=== PATIENT | female | born 1945 | race Hispanic/Latino ===

== ENCOUNTER 2017-08-02 11:29 | Emergency (ER) | payer MEDICARE ==
[~2017-08-02 11:29] MED LIST: ACET1TAB23 PO; ASPI-555 PO; AZIT500T4 PO; BUME2TAB18 PO; CARV3.12 PO; CLOP75TA32 PO; LORA10TA7 PO; METF500T6 PO; MONT10TA24 PO; PANT40TA25 PO; PRED20TA3 PO; SIMV20TA6 PO
== END 2017-08-02 14:37 | disposition home or self-care (01) ==
LOC: EDH 11:29
DX: S06.0X0A Concussion without loss of consciousness, initial encounter (principal); M25.521 Pain in right elbow; H57.12 Ocular pain, left eye; M19.90 Unspecified osteoarthritis, unspecified site; E78.5 Hyperlipidemia, unspecified; I10 Essential (primary) hypertension; I25.2 Old myocardial infarction; Z79.02 Long term (current) use of antithrombotics/antiplatelets; Z72.0 Tobacco use; W18.39XA Other fall on same level, initial encounter; Y93.01 Activity, walking, marching and hiking; Y92.89 Other specified places as the place of occurrence of the external cause; Y99.8 Other external cause status
CPT/HCPCS: 70450; 71046

== ENCOUNTER 2017-12-12 20:24 | Emergency (ER) | payer MEDICARE | END 2017-12-12 23:33 | disposition home or self-care (01) | LOC: EDH 20:24 | DX: S93.491A Sprain of other ligament of right ankle, initial encounter (principal); S80.02XA Contusion of left knee, initial encounter; S80.01XA Contusion of right knee, initial encounter; S70.02XA Contusion of left hip, initial encounter; M19.90 Unspecified osteoarthritis, unspecified site; E78.5 Hyperlipidemia, unspecified; I10 Essential (primary) hypertension; I25.2 Old myocardial infarction; Z72.0 Tobacco use; W18.39XA Other fall on same level, initial encounter; Y93.01 Activity, walking, marching and hiking; Y92.89 Other specified places as the place of occurrence of the external cause; Y99.8 Other external cause status | CPT/HCPCS: 70450; 71045; 73502; 73562; 73610; 73630 ==

== ENCOUNTER 2018-09-14 03:47 | Inpatient (IN) | payer MEDICARE | END 2018-09-16 16:05 | disposition home or self-care (01) | LOC: EDH 03:47 → WSH 09-15 01:21 → EDHIP 06:35 → WSH 13:05 ==

== ENCOUNTER 2021-01-23 16:09 | Inpatient (IN) | payer OTHER, MEDICARE ==
[~2021-01-23] VITALS: Ht 149.9 cm; Wt 74.9 kg
[~2021-01-23 16:09] MED LIST changes: +ALEN70TA80 PO; -ASPI-555 PO; +ASPI-556 PO; -BUME2TAB18 PO; +BUME2TAB5 PO; +LEVO500T2 PO; +MECL-226 PO; +METF-444 PO; -METF500T6 PO; -MONT10TA24 PO; +MONT10TA32 PO; +OXYB10TA30 PO; -PANT40TA25 PO; +PANT40TA54 PO; +SERT-438 PO; +SIMV-43 PO; -SIMV20TA6 PO
[2021-01-23 16:11] VITALS: BP 105/56
[2021-01-23 16:19] VITALS: BP 105/56
[2021-01-23] MEDS ORDERED: ONDANSETRON 4MG INJ IVP ONE (17:15)
[2021-01-23] MEDS ORDERED: HYDROMORPHONE 0.5 MG SYG (0.5MG/0.5ML) IVP ONE (17:15)
[2021-01-23 17:42] VITALS: BP 105/56
[2021-01-23 17:43] LABS: BASOPHILS % (AUTO) 0.3 % (0.0-5.0); EOSINOPHILS % (AUTO) 3.1 % (0.0-8.0); HEMATOCRIT 28.1 % (36-48); LYMPHOCYTES % (AUTO) 38.8 % (21.0-51.0); MEAN CORPUSCULAR HEMOGLOBIN 22.1 pg (27.0-33.0); MEAN CORPUSCULAR HGB CONC 30.6 g/dL (32.0-36.0); MEAN CORPUSCULAR VOLUME 72.2 fL (79-99); MONOCYTES % (AUTO) 9.2 % (3.0-13.0); NEUTROPHILS % (AUTO) 48.4 % (40.0-77.0); PLATELET COUNT (AUTO) 143 K/uL (130-400); RED BLOOD CELL COUNT(AUTO) 3.89 MIL/uL (4.00-5.50); RED CELL DISTRIBUTION WIDTH 16.5 % (11.0-15.5); WHITE BLOOD COUNT (AUTO) 6.1 K/uL (4.8-10.8)
[2021-01-23 17:49] LABS: CREATININE 0.7 mg/dL (0.5-1.5); POTASSIUM 4.8 mmol/L (3.5-5.1)
[2021-01-23 17:54] LABS: ALBUMIN 3.4 g/dL (3.5-5.0); BILIRUBIN,TOTAL 0.2 mg/dL (0.2-1.0); TOTAL PROTEIN, SERUM 7.2 g/dL (6.0-8.3)
[2021-01-23 17:55] LABS: INR 1.09 (0.85-1.15); PROTHROMBIN TIME 11.8 SEC (9.6-11.6)
[2021-01-23 17:57] LABS: PARTIAL THROMBOPLASTIN TIME 26.4 SEC (26.3-35.5)
[2021-01-23] MEDS ORDERED: ACETAMINOPHEN 325 MG TAB PO PRN ×2 (22:30)
[2021-01-23] MEDS ORDERED: ONDANSETRON 4MG INJ IV PRN (22:30)
[2021-01-23 23:08] LABS: ALBUMIN 3.3 g/dL (3.5-5.0); BILIRUBIN,TOTAL 0.3 mg/dL (0.2-1.0); CREATININE 0.6 mg/dL (0.5-1.5); POTASSIUM 4.4 mmol/L (3.5-5.1); TOTAL PROTEIN, SERUM 7.1 g/dL (6.0-8.3)
[2021-01-23 23:11] LABS: % IRON SATURATION 5.4 % (22-44)
[2021-01-23 23:15] VITALS: BP 107/60
[2021-01-23] MEDS: NACL 0.9% 1000ML 1,000 ML IV SCH (23:38)
[2021-01-24] VITALS (9 sets, daily range): BP systolic 110–173; BP diastolic 64–96
[2021-01-24] MEDS ORDERED: SIMV-43 PO (04:57)
[2021-01-24] MEDS ORDERED: LORA10TA7 PO (04:57)
[2021-01-24] MEDS ORDERED: ALBU8.5H8 IH (04:57)
[2021-01-24] MEDS ORDERED: MONT10TA32 PO (04:57)
[2021-01-24] MEDS ORDERED: LOSA1TAB37 PO (04:57)
[2021-01-24] MEDS ORDERED: CLOP75TA32 PO (04:57)
[2021-01-24] MEDS ORDERED: SITA50TA PO (04:57)
[2021-01-24] MEDS ORDERED: ALEN70TA80 PO (04:57)
[2021-01-24] MEDS ORDERED: OXYB10TA30 PO (04:57)
[2021-01-24] MEDS ORDERED: ASPI-1197 PO (04:57)
[2021-01-24] MEDS ORDERED: METF-444 PO (04:57)
[2021-01-24] MEDS: MORPHINE 2 MG SYG IV PRN ×2 (05:25→13:28)
[2021-01-24 05:35] LABS: BASOPHILS % (AUTO) 0.3 % (0.0-5.0); HEMATOCRIT 28.7 % (36-48); MEAN CORPUSCULAR HEMOGLOBIN 21.6 pg (27.0-33.0); MEAN CORPUSCULAR HGB CONC 30.7 g/dL (32.0-36.0); MEAN CORPUSCULAR VOLUME 70.5 fL (79-99); MONOCYTES % (AUTO) 6.1 % (3.0-13.0); NEUTROPHILS % (AUTO) 66.2 % (40.0-77.0); PLATELET COUNT (AUTO) 148 K/uL (130-400); RED BLOOD CELL COUNT(AUTO) 4.07 MIL/uL (4.00-5.50); RED CELL DISTRIBUTION WIDTH 16.2 % (11.0-15.5); WHITE BLOOD COUNT (AUTO) 7.6 K/uL (4.8-10.8)
[2021-01-24 06:01] LABS: ALBUMIN 3.3 g/dL (3.5-5.0); BILIRUBIN,TOTAL 0.4 mg/dL (0.2-1.0); CREATININE 0.6 mg/dL (0.5-1.5); POTASSIUM 4.1 mmol/L (3.5-5.1); TOTAL PROTEIN, SERUM 7.2 g/dL (6.0-8.3)
[2021-01-24] MEDS: INSULIN HUMULIN R 100 UNIT/ML 3ML SQ SCH ×4 (07:30→21:00)
[2021-01-24] MEDS: FAMOTIDINE 20MG VIAL IV SCH ×2 (09:00→20:46)
[2021-01-24] MEDS: CYCLOBENZAPRINE HCL 10 MG TABLET PO SCH ×3 (09:00→20:47)
[2021-01-24] MEDS ORDERED: ENOXAPARIN SODIUM 30 MG/0.3 ML SQ SCH (09:00)
[2021-01-24] MEDS ORDERED: ASPIRIN 81MG CHEW TAB PO SCH (09:00)
[2021-01-24] MEDS: NACL 0.9% 1000ML 1,000 ML IV SCH (18:54)
[2021-01-24] MEDS: SIMVASTATIN 10 MG TABLET PO SCH (20:47)
[2021-01-25 04:03] VITALS: BP 174/80
[2021-01-25 06:17] LABS: BASOPHILS % (AUTO) 0.3 % (0.0-5.0); EOSINOPHILS % (AUTO) 2.5 % (0.0-8.0); LYMPHOCYTES % (AUTO) 40.9 % (21.0-51.0); MEAN CORPUSCULAR HEMOGLOBIN 22.1 pg (27.0-33.0); MEAN CORPUSCULAR VOLUME 71.1 fL (79-99); MONOCYTES % (AUTO) 8.1 % (3.0-13.0); NEUTROPHILS % (AUTO) 47.6 % (40.0-77.0); PLATELET COUNT (AUTO) 137 K/uL (130-400); RED BLOOD CELL COUNT(AUTO) 4.08 MIL/uL (4.00-5.50); RED CELL DISTRIBUTION WIDTH 16.5 % (11.0-15.5); WHITE BLOOD COUNT (AUTO) 6.5 K/uL (4.8-10.8)
[2021-01-25 06:45] LABS: ALBUMIN 3.1 g/dL (3.5-5.0); BILIRUBIN,TOTAL 0.4 mg/dL (0.2-1.0); CREATININE 0.6 mg/dL (0.5-1.5); MAGNESIUM 2.2 mg/dL (1.80-2.40); POTASSIUM 3.9 mmol/L (3.5-5.1); TOTAL PROTEIN, SERUM 7.1 g/dL (6.0-8.3)
[2021-01-25] MEDS: INSULIN HUMULIN R 100 UNIT/ML 3ML SQ SCH ×4 (07:30→21:49)
[2021-01-25 07:31] VITALS: BP 186/77
[2021-01-25] MEDS: HYDROCHLOROTHIAZIDE 25 MG TABLET PO SCH (10:32)
[2021-01-25] MEDS: CYCLOBENZAPRINE HCL 10 MG TABLET PO SCH ×3 (10:33→21:35)
[2021-01-25] MEDS: LOSARTAN 50 MG TABLET PO SCH (10:33)
[2021-01-25] MEDS: FAMOTIDINE 20MG VIAL IV SCH ×2 (10:33→21:34)
[2021-01-25 11:29] VITALS: BP 158/75
[2021-01-25] MEDS: MORPHINE 2 MG SYG IV PRN ×2 (12:28→22:23)
[2021-01-25] MEDS ORDERED: GADOTERATE MEGLUMINE 10 MMOL/20 ML VIAL IV ONE (13:00)
[2021-01-25] MEDS: NACL 0.9% 1000ML 1,000 ML IV SCH (14:30)
[2021-01-25 16:15] VITALS: BP 165/69
[2021-01-25 19:58] VITALS: BP 152/75
[2021-01-25] MEDS: SIMVASTATIN 10 MG TABLET PO SCH (21:37)
[2021-01-26] VITALS: BP 142/59
[2021-01-26 03:57] VITALS: BP 139/64
[2021-01-26] MEDS: INSULIN HUMULIN R 100 UNIT/ML 3ML SQ SCH ×4 (05:47→21:43)
[2021-01-26 06:06] LABS: BASOPHILS % (AUTO) 0.3 % (0.0-5.0); EOSINOPHILS % (AUTO) 4.6 % (0.0-8.0); HEMATOCRIT 30.1 % (36-48); LYMPHOCYTES % (AUTO) 36.6 % (21.0-51.0); MEAN CORPUSCULAR HEMOGLOBIN 21.4 pg (27.0-33.0); MEAN CORPUSCULAR HGB CONC 30.2 g/dL (32.0-36.0); MEAN CORPUSCULAR VOLUME 70.7 fL (79-99); MONOCYTES % (AUTO) 7.2 % (3.0-13.0); PLATELET COUNT (AUTO) 153 K/uL (130-400); RED BLOOD CELL COUNT(AUTO) 4.26 MIL/uL (4.00-5.50); RED CELL DISTRIBUTION WIDTH 16.8 % (11.0-15.5); WHITE BLOOD COUNT (AUTO) 6.1 K/uL (4.8-10.8)
[2021-01-26 06:27] LABS: ALBUMIN 3.2 g/dL (3.5-5.0); BILIRUBIN,TOTAL 0.4 mg/dL (0.2-1.0); CREATININE 0.6 mg/dL (0.5-1.5); TOTAL PROTEIN, SERUM 7.4 g/dL (6.0-8.3)
[2021-01-26 06:32] LABS: B-TYPE NATRIURETIC PEPTIDE 53 pg/mL (0-100)
[2021-01-26 07:27] VITALS: BP 121/52
[2021-01-26] MEDS: CYCLOBENZAPRINE HCL 10 MG TABLET PO SCH ×3 (08:25→20:43)
[2021-01-26] MEDS: FAMOTIDINE 20MG VIAL IV SCH ×2 (08:25→20:44)
[2021-01-26] MEDS: LOSARTAN 50 MG TABLET PO SCH (08:25)
[2021-01-26] MEDS: MORPHINE 2 MG SYG IV PRN ×2 (08:27→20:55)
[2021-01-26] MEDS: HYDROCHLOROTHIAZIDE 25 MG TABLET PO SCH (08:27)
[2021-01-26] MEDS: NACL 0.9% 1000ML 1,000 ML IV SCH (10:30)
[2021-01-26 11:36] VITALS: BP 147/66
[2021-01-26 15:48] VITALS: BP 151/68
[2021-01-26] MEDS ORDERED: FERROUS SULFATE 325 MG TABLET.DR PO SCH (17:45)
[2021-01-26] MEDS ORDERED: CLOPIDOGREL 75MG TAB PO SCH (17:45)
[2021-01-26] MEDS ORDERED: ASPIRIN 81 MG EC TAB PO ONE (17:45)
[2021-01-26] MEDS: ASPIRIN 81 MG EC TAB PO SCH (18:25)
[2021-01-26] MEDS: CLOPIDOGREL 75MG TAB PO SCH (18:25)
[2021-01-26] MEDS: FERROUS SULFATE 325 MG TABLET.DR PO SCH (18:26)
[2021-01-26 19:59] VITALS: BP 137/59
[2021-01-26] MEDS: SIMVASTATIN 10 MG TABLET PO SCH (20:44)
[2021-01-27 00:08] VITALS: BP 155/69
[2021-01-27 04:00] VITALS: BP 133/69
[2021-01-27] MEDS: INSULIN HUMULIN R 100 UNIT/ML 3ML SQ SCH ×4 (05:47→21:00)
[2021-01-27] MEDS: NACL 0.9% 1000ML 1,000 ML IV SCH (06:30)
[2021-01-27 06:36] LABS: BASOPHILS % (AUTO) 0.3 % (0.0-5.0); HEMATOCRIT 30.7 % (36-48); LYMPHOCYTES % (AUTO) 40.5 % (21.0-51.0); MEAN CORPUSCULAR HEMOGLOBIN 21.1 pg (27.0-33.0); MEAN CORPUSCULAR VOLUME 70.4 fL (79-99); MONOCYTES % (AUTO) 8.2 % (3.0-13.0); NEUTROPHILS % (AUTO) 46.5 % (40.0-77.0); PLATELET COUNT (AUTO) 154 K/uL (130-400); RED BLOOD CELL COUNT(AUTO) 4.36 MIL/uL (4.00-5.50); RED CELL DISTRIBUTION WIDTH 16.8 % (11.0-15.5); WHITE BLOOD COUNT (AUTO) 5.7 K/uL (4.8-10.8)
[2021-01-27 06:52] LABS: CREATININE 0.6 mg/dL (0.5-1.5); POTASSIUM 4.4 mmol/L (3.5-5.1)
[2021-01-27 06:53] LABS: % IRON SATURATION 77.1 % (22-44)
[2021-01-27 07:29] VITALS: BP 128/63
[2021-01-27] MEDS: CYCLOBENZAPRINE HCL 10 MG TABLET PO SCH ×3 (09:49→20:00)
[2021-01-27] MEDS: FERROUS SULFATE 325 MG TABLET.DR PO SCH (09:49)
[2021-01-27] MEDS: ASPIRIN 81 MG EC TAB PO SCH (09:49)
[2021-01-27] MEDS: HYDROCHLOROTHIAZIDE 25 MG TABLET PO SCH (09:50)
[2021-01-27] MEDS: CLOPIDOGREL 75MG TAB PO SCH (09:50)
[2021-01-27] MEDS: FAMOTIDINE 20MG VIAL IV SCH ×2 (09:51→20:00)
[2021-01-27] MEDS: LOSARTAN 50 MG TABLET PO SCH (09:51)
[2021-01-27] MEDS: MORPHINE 2 MG SYG IV PRN ×2 (10:10→20:07)
[2021-01-27 11:14] VITALS: BP 125/58
[2021-01-27 16:09] VITALS: BP 128/58
[2021-01-27] MEDS: SIMVASTATIN 10 MG TABLET PO SCH (20:00)
[2021-01-27 20:10] VITALS: BP 134/63
[2021-01-28] VITALS: BP 126/56
[2021-01-28] MEDS: NACL 0.9% 1000ML 1,000 ML IV SCH (02:30)
[2021-01-28] MEDS: INSULIN HUMULIN R 100 UNIT/ML 3ML SQ SCH ×2 (07:15→11:24)
[2021-01-28 08:10] VITALS: BP 136/88
[2021-01-28] MEDS: CYCLOBENZAPRINE HCL 10 MG TABLET PO SCH ×2 (08:35→13:40)
[2021-01-28] MEDS: HYDROCHLOROTHIAZIDE 25 MG TABLET PO SCH (08:35)
[2021-01-28] MEDS: ASPIRIN 81 MG EC TAB PO SCH (08:35)
[2021-01-28] MEDS: FERROUS SULFATE 325 MG TABLET.DR PO SCH (08:35)
[2021-01-28] MEDS: CLOPIDOGREL 75MG TAB PO SCH (08:36)
[2021-01-28] MEDS: FAMOTIDINE 20MG VIAL IV SCH (08:36)
[2021-01-28] MEDS: LOSARTAN 50 MG TABLET PO SCH (08:36)
[2021-01-28 11:11] VITALS: BP 119/51
== END 2021-01-28 16:30 | DRG 563 ==
LOC: EDH 16:09 → EDHIP 23:11 → 3AH 01-24 08:26
PROVIDERS: ADMIT Internal Medicine; ATTEND Internal Medicine
DX: M23.91 Unspecified internal derangement of right knee (principal); S80.02XA Contusion of left knee, initial encounter; D64.9 Anemia, unspecified; I25.2 Old myocardial infarction; I25.10 Atherosclerotic heart disease of native coronary artery without angina pectoris; E78.00 Pure hypercholesterolemia, unspecified; E78.5 Hyperlipidemia, unspecified; I10 Essential (primary) hypertension; J45.909 Unspecified asthma, uncomplicated; M19.90 Unspecified osteoarthritis, unspecified site; W01.0XXA Fall on same level from slipping, tripping and stumbling without subsequent striking against object, initial encounter; E11.9 Type 2 diabetes mellitus without complications; M25.462 Effusion, left knee; Y93.01 Activity, walking, marching and hiking; Y92.89 Other specified places as the place of occurrence of the external cause; Y99.8 Other external cause status; Z86.12 Personal history of poliomyelitis; Z87.891 Personal history of nicotine dependence; Z95.5 Presence of coronary angioplasty implant and graft; Z86.16 Personal history of COVID-19; Z91.018 Allergy to other foods; Z82.3 Family history of stroke; Z90.49 Acquired absence of other specified parts of digestive tract
CPT/HCPCS: 36415; 71045; 73501; 73562; 73700; 73723; 80048; 80053; 80061; 82948; 83540; 83550; 83735; 83880; 84484; 85025; 85610; 85651; 85730; 97039; G0378; J1170; J1815; J2405; J3490

== ENCOUNTER → 2025-03-07 | Emergency (ER) | payer OTHER, MEDICAID ==
[~2025-03-07] VITALS: Ht 149.9 cm; Wt 83.5 kg
[~2025-03-07] MED LIST changes: -ACET1TAB23 PO; +ASCO500T19 PO; -AZIT500T4 PO; -BUME2TAB5 PO; +CEFD300C3 PO; +CYAN-37 PO; +FERR-72 PO; +FOLI0.8T3 PO; -LEVO500T2 PO; +LOSA1TAB37 PO; -MECL-226 PO; -METF-444 PO; +MONT-39 PO; -MONT10TA32 PO; +NITR0.4T50 SL; -PANT40TA54 PO; +PANT40TA55 PO; +PIOG30TA70 PO; -PRED20TA3 PO; -SERT-438 PO
[2025-03-07 08:50] LABS: IMMATURE GRANULOCYTE ABSOLUTE 0.02 K/uL (0-1); NUCLEATED RED BLOOD CELLS 0.0 % (0.0-0.19); PLATELET COUNT (AUTO) 112 K/uL (130-400); RED BLOOD CELL COUNT(AUTO) 3.85 MIL/uL (4.00-5.50); RED CELL DISTRIBUTION WIDTH 13.9 % (11.0-15.5); WHITE BLOOD COUNT (AUTO) 4.9 K/uL (4.8-10.8)
--- NOTE | 2025-03-07 08:50 | NUR ---
PROVIDER AT BEDSIDE AT THIS TIME.
[2025-03-07 08:57] LABS: CREATININE 0.6 mg/dL (0.5-1.0); GLOMERULAR FILTR. RATE CALC 92.0 mL/min (>90); GLUCOSE,RANDOM 99.0 mg/dL (70-105); SODIUM SERUM 133.0 mmol/L (136-145); UREA NITROGEN, BLOOD 13.0 mg/dL (7-18)
[2025-03-07 09:01] LABS: ASPARTATE AMINOTRANSFERASE 21.0 U/L (10-37); TOTAL PROTEIN, SERUM 6.7 g/dL (6.0-8.3)
[2025-03-07 10:02] LABS: APPEARANCE,URINE CLEAR (CLEAR); GLUCOSE, URINE (UA) NEGATIVE (NEGATIVE); LEUKOCYTE ESTERASE ,URINE NEGATIVE Leu/uL (NEGATIVE); NITRATE,URINE NEGATIVE (NEGATIVE); OCCULT BLOOD,URINE NEGATIVE (NEGATIVE)
[2025-03-07 10:08] LABS: ADD UA MICROSCOPIC NO
[2025-03-07] MEDS: 0.9%NACL 1000ML 1,000 ML IV ONE (10:18)
--- NOTE | 2025-03-07 10:26 | ERN ---
General Chief Complaint: Abdominal Pain Stated Complaint: ABD PAIN Time Seen by MD: 08:09 Source: patient History of Present Illness Initial Comments Patient is a 79-year-old female coming in complaining of abdominal discomfort. Patient states he is a has a chronic history of this. No fever no chills. She states that the symptoms began earlier in the morning. Allergies: Coded Allergies: No Known Drug Allergies (Verified Allergy, Unknown, 03/13/16) broccoli (Unverified Allergy, Unknown, 03/13/16) THROAT CLOSES carrot (Unverified Adverse Reaction, Severe, SWOLLEN TONGUE, 08/17/23) Home Meds Active Scripts Cyanocobalamin (Vitamin B-12) (B-12) 1,000 Mcg Tablet, 1000 MCG PO DAILY for 30 Days, #30 TAB 1 Refill Prov:CRISTIAN BARTLETT MD 08/20/23 Folic Acid (Folic Acid) 0.8 Mg Tablet, 0.8 MG PO DAILY for 30 Days, #30 TAB 1 Refill Prov:CRISTIAN BARTLETT MD 08/20/23 Nitroglycerin (Nitroglycerin) 0.4 Mg Tab.subl, 0.4 MG SL [id number] PRN for CHEST PAIN for 30 Days, #30 TAB.SL 1 Refill Prov:CRISTIAN BARTLETT MD 08/20/23 Cefdinir (Cefdinir) 300 Mg Capsule, 300 MG PO BID for 5 Days, #10 CAP 0 Refills Prov:CRISTIAN BARTLETT MD 08/20/23 Reported Medications Ferrous Sulfate (Ferrous Sulfate) 325 Mg (65 Mg Iron) Tablet, 325 MG PO TID, TAB 08/16/23 Ascorbic Acid/Ascorbate Sodium (Vitamin C 500 mg Tablet Chew) 500 Mg Tab.chew, 500 MG PO BID, TAB.CHEW 08/16/23 Pioglitazone HCl (Pioglitazone HCl) 30 Mg Tablet, 30 MG PO DAILY, TAB 08/16/23 Losartan/Hydrochlorothiazide (Losartan-Hctz 50-12.5 mg Tab) 1 Each Tablet, 1 EACH PO DAILY, TAB 01/24/21 Clopidogrel Bisulfate (Clopidogrel) 75 Mg Tablet, 75 MG PO DAILY, TAB 01/24/21 Loratadine (Loratadine) 10 Mg Tablet, 10 MG PO DAILY, TAB 01/24/21 Montelukast Sodium (Montelukast Sodium) 10 Mg Tablet, 10 MG PO HS, TAB 01/24/21 Simvastatin (Simvastatin) 20 Mg Tablet, 20 MG PO HS, TAB 01/24/21 Oxybutynin Chloride (Oxybutynin Chloride ER) 10 Mg Tab.er.24, 10 MG PO DAILY 01/24/21 Alendronate Sodium (Alendronate Sodium) 70 Mg Tablet, 70 MG PO QWEEK, TAB 01/24/21 Aspirin (Aspir 81) 81 Mg Tablet.dr, 81 MG PO DAILY, TAB 03/13/16 Carvedilol (Carvedilol) 3.125 Mg Tablet, 6.25 MG PO BID, TAB 03/13/16 Past Medical History Past Medical History: CAD, High Cholesterol, Hypertension Medical History Other: POLIO TO RIGHT LEG Past Surgical History: Other Surgical History Other: CARDIAC STENTS Family History Family History: Negative Social History Social History: Negative ROS Dictation CONSTITUTIONAL: No chills, no fever, no weakness, no diaphoresis, no malaise. HEAD/FACE: No signs of trauma. EENT: No eye pain, no blurred vision, no tearing, no double vision, no ear pain, no ear discharge, no nose pain, no nasal congestion, no throat pain, no throat swelling, no mouth pain. RESPIRATORY: No cough, no orthopnea, no SOB, no stridor, no wheezing. CARDIOVASCULAR: No chest pain, no edema, no palpitations, no syncope. GASTROINTESTINAL/ABDOMINAL: abdominal pain, no constipation, no diarrhea, no nausea, no vomiting. GENITOURINARY: No abnormal discharge, no dysuria, no frequent urination, no hematuria. No complaints of pain in the genitals. MUSCULOSKELETAL: No back pain, no gout, no joint pain, no joint swelling, no muscle pain, no muscle stiffness, no neck pain. INTEGUMENTARY: No change in color, no change in hair/nails, no dryness, no lesion, no lumps, no rash. NEUROLOGICAL/PSYCH: No anxiety, not depressed, no emotional problem, no headache, no numbness, no pre-existing deficit, no history of seizures, no tremors, no weakness. HEMATOLOGIC/LYMPHATIC: Not anemic, no history of blood clots, no apparent bleeding, no bruising, glands not swollen. All Systems Negative, Except as Noted. Physical Exam Physical Exam Dictation VITAL SIGNS: Reviewed. GENERAL APPEARANCE: Alert, oriented x3, no acute distress, obese. HEAD AND FACE: Non-traumatic. EYES: PERRL, pink conjunctivas, eyelid no trauma, anterior chamber clear. EARS: Pinnas intact and no signs of trauma or erythema. Ear canals clear and no discharge. TMs no erythema. NOSE: No discharge, no bleeding. OROPHARYNX: Mouth normal, teeth no caries, tongue pink. Pharynx clear, no erythema. Tonsils no exudates, no abscesses noted. Mucous membrane moist. NECK: Supple, non-tender, no thyromegaly, no masses, no JVD, no bruits. BREAST: Deferred. CHEST: No tenderness, no crepitus, no paradoxical movement, no retractions. LUNGS: Clear, well-ventilated, symmetric, no rales, no wheezing, no rhonchi, no stridor, good breath sounds bilaterally. HEART: Regular rate, regular rhythm, no murmur, no gallops. VASCULAR: No peripheral edema. ABDOMEN: Soft, positive bowel sounds, nondistended, no guarding, epigastric tender, no rebound, no masses no hepatomegaly, no splenomegaly, no Hendricks's sign, no hernias. RECTAL: Deferred. GENITAL: Deferred. NEUROLOGICAL: Normal speech, gross motor function intact, gross sensory functi on intact. MUSCULOSKELETAL: Neck nontender, full range of motion, back nontender, full range of motion. EXTREMITIES: Nontender, full range of motion. SKIN: Color pink, dry, no turgor, no rash, no lacerations, no abrasions, no contusions. LYMPHATICS: Deferred. Results Laboratory and Microbiology Lab and Micro Result Laboratory Tests Test 03/07/25 08:24 03/07/25 09:38 White Blood Count 4.9 K/uL (4.8-10.8) Red Blood Count 3.85 MIL/uL (4.00-5.50) L Hemoglobin 11.3 g/dL (12.0-16.0) L Hematocrit 33.9 % (36-48) L Mean Corpuscular Volume 88.1 fL (79-99) Mean Corpuscular Hemoglobin 29.4 pg (27.0-33.0) Mean Corpuscular Hemoglobin Concent 33.3 g/dL (32.0-36.0) Red Cell Distribution Width 13.9 % (11.0-15.5) Platelet Count 112 K/uL (130-400) L Mean Platelet Volume 11.1 fL (7.5-10.5) H Immature Granulocyte % (Auto) 0.4 % (0-1) Neutrophils (%) (Auto) 58.5 % (40.0-77.0) Lymphocytes (%) (Auto) 30.5 % (21.0-51.0) Monocytes (%) (Auto) 6.7 % (3.0-13.0) Eosinophils (%) (Auto) 3.5 % (0.0-8.0) Basophils (%) (Auto) 0.4 % (0.0-5.0) Neutrophils # (Auto) 2.9 K/uL (1.8-7.7) Lymphocytes # (Auto) 1.5 K/uL (1.0-4.8) Monocytes # (Auto) 0.3 K/uL (0.1-1.0) Eosinophils # (Auto) 0.17 K/uL (0.00-0.70) Basophils # (Auto) 0.02 K/uL (0.00-0.20) Absolute Immature Granulocyte (auto 0.02 K/uL (0-1) Nucleated Red Blood Cells 0.0 % (0.0-0.19) Sodium Level 133 mmol/L (136-145) L Potassium Level 4.5 mmol/L (3.5-5.1) Chloride Level 99 mmol/L (101-111) L Carbon Dioxide Level 29 mmol/L (21-32) Blood Urea Nitrogen 13 mg/dL (7-18) Creatinine 0.6 mg/dL (0.5-1.0) Glomerular Filtration Rate Calc 92 mL/min (>90) Random Glucose 99 mg/dL (70-105) Total Calcium 9.0 mg/dL (8.5-10.1) Total Bilirubin 0.4 mg/dL (0.2-1.0) Aspartate Amino Transf (AST/SGOT) 21 U/L (10-37) Alanine Aminotransferase (ALT/SGPT) 25 U/L (12-78) Alkaline Phosphatase 82 U/L (50-136) Troponin I High Sensitivity 7 ng/L (4-50) Total Protein 6.7 g/dL (6.0-8.3) Albumin 3.2 g/dL (3.5-5.0) L Lipase 19 U/L (16-77) Urine Color COLORLESS (YELLOW) Urine Appearance CLEAR (CLEAR) Urine pH 7.0 (5.0-8.0) Urine Specific [place] 1.006 (1.001-1.031) Urine Protein NEGATIVE mg/dL (NEGATIVE) Urine Glucose (UA) NEGATIVE mg/dL (NEGATIVE) Urine Ketones NEGATIVE mg/dL (NEGATIVE) Urine Occult Blood NEGATIVE (NEGATIVE) Urine Nitrate NEGATIVE (NEGATIVE) Urine Bilirubin NEGATIVE mg/dL (NEGATIVE) Urine Urobilinogen 0.2 mg/dL (0.2-1.0) Urine Leukocyte Esterase NEGATIVE Riccardo/uL Labs Reviewed?: Yes EKG/XRAY/US/CT/MRI EKG Comment 12/2024 time 10:29 a.m. Ventricular rate 75 Sinus rhythm [place] [address] wave elevation or depression MDM MDM: Differential diagnosis: Gastritis, GERD, NSTEMI, ACS, pancreatitis Rationale: Tests considered and ordered secondary to shared decision making include: Previous outside records reviewed: Old ER visits. Risk of complication and/or morbidity or mortality of patient management: None Medications-Per medication reconciliation Need for hospitalization: Patient does not meet criteria for hospitalization. Need for emergency major/minor surgery: No Patient is a 79-year-old female coming in complaining of epigastric pain. Laboratory workup within normal limits. Patient received a GI cocktail Protonix states her symptoms have subsided. Patient will be discharged in stable condition with a diagnosis of viral gastroenteritis. ED Course Orders Procedure Category Date Status Time Cbc With Differential LAB 03/07/25 Complete 08:13 Comprehensive LAB 03/07/25 Complete Metabolic Panel 08:13 Troponin I High LAB 03/07/25 Complete Sensitivity 08:13 Urinalysis Profile LAB 03/07/25 Complete 08:13 0.9%Nacl 1000ml (Ns PHA 03/07/25 Complete 1000ml) 08:30 Pantoprazole 40mg Inj PHA 03/07/25 Complete (Protonix 40mg Inj 08:30 Lipase LAB 03/07/25 Complete 08:13 12 Lead Ekg Tracing- EKG 03/07/25 Logged Technical 10:27 Current Medications Medications (Trade) Dose Ordered Sig/Meka Route PRN Reason Start Time Stop Time Status Last Admin Dose Admin Pantoprazole Sodium (PROTonix 40MG INJ) 40 mg ONCE ONCE IVP 03/07/25 08:30 03/07/25 08:31 DC 03/07/25 10:18 Sodium Chloride 1,000 ml @ 0 mls/hr ONCE ONCE IV 03/07/25 08:30 03/07/25 08:31 DC 03/07/25 10:18 Vital Signs Date Time Temp Pulse Resp B/P (MAP) Pulse Ox O2 Delivery O2 Flow Rate FiO2 03/07/25 08:38 83 19 122/61 99 Room Air* 0 21 03/07/25 08:07 98.4 74 16 125/85 97 Room Air 0 DX & DISP Disposition: Discharge Departure Impression: Primary Impression: Viral gastroenteritis Additional Impression: Gastritis Condition: Stable Scripts Pantoprazole Sodium (Protonix) 40 Mg Ectab 1 TAB PO DAILY for 30 Days, #30 TAB 0 Refills Prov: DIONNE HUTSON MD 03/07/25 Additional Instructions: You have been reviewed in the emergency department at [facility] after presenting with chest pain. After considering your history, your risk factors, your EKG and your blood test troponins, have been found to be at very low risk less than (1 in 100) of having a major adverse cardiac event (like heart attack) in the near future. In the " low risk" group, the risks of doing further tests and treatment as the inpatient outweighs the benefits. In many patients in the low risk group for the test of any sort or unnecessary, however he should discuss this further with his general practitioner who will understand the medical and personal backgrounds better. Because we have never declared you" no risk" we would suggest. 1 returning for medical review if you have further episodes of chest pain/arm pain or other concerning symptoms like dizziness, collapse, palpitations or shortness of breath. 2. Following up with your local doctor who will consider the need for further testing and will also ensure that any modifiable risk factors you may have for heart disease are optimally managed. Patient will be discharged in stable condition at the moment discharge patient states , no chest pain Referrals: ANGUS BARTH (PCP) Time of Disposition: 10:35 DIONNE HUTSON MD Mar 07, 2025 10:26
--- NOTE | 2025-03-07 10:34 | EKG ---
[facility] Test Date: 2025-03-07 Test Time: 10:29:59 Pat Name: IKE ROBERTS Department: [facility] Room: Gender: F Hand Box Folder: [id number] : [id number] Requested By: DIONNE HUTSON Order Number: [id number] Reading MD: Heriberto Sharma Measurements Intervals [place] Rate: 75 P: 67 CO: 161 QRS: -19 QRSD: 89 T: 44 QT: 390 QTc: 437 Interpretive Statements Sinus rhythm Probable left atrial enlargement Compared to ECG 08/15/2023 19:00:18 No significant changes Electronically Signed On 03-10-2025 19:46:54 CDT by Heriberto Sharma Please click the below link to view image of tracing.
[2025-03-07] MEDS: MAG/ALUM/SIMETH 30 ML UDCUP PO ONE (10:46)
[2025-03-07] MEDS: LIDOCAINE HCL 2% VISCOUS 15 ML UDCUP PO ONE (10:46)
[2025-03-07 11:15] VITALS: BP 125/66; PULSE 80; RESP 20; TEMP 98.3; O2SAT 98
== END ==
LOC: EDH 08:05
DX: A08.4 Viral intestinal infection, unspecified (principal); K29.70 Gastritis, unspecified, without bleeding; I25.10 Atherosclerotic heart disease of native coronary artery without angina pectoris; E78.00 Pure hypercholesterolemia, unspecified; I10 Essential (primary) hypertension; Z95.5 Presence of coronary angioplasty implant and graft; Z79.84 Long term (current) use of oral hypoglycemic drugs; Z79.899 Other long term (current) drug therapy; Z79.82 Long term (current) use of aspirin; Z79.02 Long term (current) use of antithrombotics/antiplatelets
CPT/HCPCS: 99284; 96374; 96361; 84484; 80053; 83690; 85025; 81003; 36415; 93005; J7030; J2470

== ENCOUNTER 2025-03-22 16:07 | Emergency (ER) | payer OTHER, MEDICAID ==
[~2025-03-22] VITALS: Ht 149.9 cm; Wt 83.5 kg
--- NOTE | 2025-03-22 16:15 | ERN ---
ED Note History of Present Illness Stated Complaint: EPIGASTRIC PAIN Chief Complaint: Abdominal Pain Time Seen by MD: 16:09 Dictation: PATIENT IS A 79-YEAR-OLD FEMALE COMING IN VIA EMS WITH COMPLAINTS OF EPIGASTRIC PAIN THAT SHE DESCRIBED BURNING ONSET 1 HOUR PRIOR TO ARRIVAL. NO FEVER NO CHILLS NO NAUSEA VOMITING. NO CHEST PAIN. SHE STATES SHE DOES HAVE A HISTORY OF CARDIAC DISEASE TOOK TWO NITROGLYCERIN WITHOUT ANY RELIEF. HE IS TENDER TO THE EPIGASTRIC AREA STATES SHE DOES HAVE A HISTORY OF GASTRITIS. Allergies: Coded Allergies: No Known Drug Allergies (Verified Allergy, Unknown, 03/13/16) broccoli (Unverified Allergy, Unknown, 03/13/16) THROAT CLOSES carrot (Unverified Adverse Reaction, Severe, SWOLLEN TONGUE, 08/17/23) Home Meds Active Scripts Pantoprazole Sodium (Protonix) 40 Mg Ectab, 1 TAB PO DAILY for 30 Days, #30 TAB 0 Refills Prov:DIONNE HUTSON MD 03/07/25 Cyanocobalamin (Vitamin B-12) (B-12) 1,000 Mcg Tablet, 1000 MCG PO DAILY for 30 Days, #30 TAB 1 Refill Prov:CRISTIAN BARTLETT MD 08/20/23 Folic Acid (Folic Acid) 0.8 Mg Tablet, 0.8 MG PO DAILY for 30 Days, #30 TAB 1 Refill Prov:CRISTIAN BARTLETT MD 08/20/23 Nitroglycerin (Nitroglycerin) 0.4 Mg Tab.subl, 0.4 MG SL [id number] PRN for CHEST PAIN for 30 Days, #30 TAB.SL 1 Refill Prov:CRISTIAN BARTLETT MD 08/20/23 Cefdinir (Cefdinir) 300 Mg Capsule, 300 MG PO BID for 5 Days, #10 CAP 0 Refills Prov:CRISTIAN BARTLETT MD 08/20/23 Reported Medications Ferrous Sulfate (Ferrous Sulfate) 325 Mg (65 Mg Iron) Tablet, 325 MG PO TID, TAB 08/16/23 Ascorbic Acid/Ascorbate Sodium (Vitamin C 500 mg Tablet Chew) 500 Mg Tab.chew, 500 MG PO BID, TAB.CHEW 08/16/23 Pioglitazone HCl (Pioglitazone HCl) 30 Mg Tablet, 30 MG PO DAILY, TAB 08/16/23 Losartan/Hydrochlorothiazide (Losartan-Hctz 50-12.5 mg Tab) 1 Each Tablet, 1 EACH PO DAILY, TAB 01/24/21 Clopidogrel Bisulfate (Clopidogrel) 75 Mg Tablet, 75 MG PO DAILY, TAB 01/24/21 Loratadine (Loratadine) 10 Mg Tablet, 10 MG PO DAILY, TAB 01/24/21 Montelukast Sodium (Montelukast Sodium) 10 Mg Tablet, 10 MG PO HS, TAB 01/24/21 Simvastatin (Simvastatin) 20 Mg Tablet, 20 MG PO HS, TAB 01/24/21 Oxybutynin Chloride (Oxybutynin Chloride ER) 10 Mg Tab.er.24, 10 MG PO DAILY 01/24/21 Alendronate Sodium (Alendronate Sodium) 70 Mg Tablet, 70 MG PO QWEEK, TAB 01/24/21 Aspirin (Aspir 81) 81 Mg Tablet.dr, 81 MG PO DAILY, TAB 03/13/16 Carvedilol (Carvedilol) 3.125 Mg Tablet, 6.25 MG PO BID, TAB 03/13/16 Past Medical History Past Medical History: Diabetes-Type II, High Cholesterol, Hypertension Additional Past Medical Hx: POLIO TO RIGHT LEG Surgical History: Other Surgical History Other: CARDIAC STENTS Family History: Negative Social History: Negative History: Not Applicable RN Note Reviewed/Agreed w/PFSH: Yes Review of System Dictation CONSTITUTIONAL: NEGATIVE EXCEPT FOR HPI HEAD/FACE: NEGATIVE EXCEPT FOR HPI EENT: NEGATIVE EXCEPT FOR HPI RESPIRATORY: NEGATIVE EXCEPT FOR HPI GASTROINTESTINAL/ABDOMINAL: NEGATIVE EXCEPT FOR HPI EPIGASTRIC PAIN NAUSEA GENITOURINARY: NEGATIVE EXCEPT FOR HPI MUSCULOSKELETAL: NEGATIVE EXCEPT FOR HPI INTEGUMENTARY: NEGATIVE EXCEPT FOR HPI NEUROLOGICAL/PSYCH: NEGATIVE EXCEPT FOR HPI HEMATOLOGIC/LYMPHATIC: NEGATIVE EXCEPT FOR HPI ALL SYSTEMS NEGATIVE, EXCEPT NOTED ABOVE. 13 POINT REVIEW OF SYSTEMS ASSESSED AND ALL NEGATIVE EXCEPT FOR ABOVE. Initial Vital Sign VS Vital Signs Date Time Temp Pulse Resp B/P (MAP) Pulse Ox O2 Delivery O2 Flow Rate FiO2 03/22/25 16:09 97.9 80 16 144/77 98 Room Air 0 Physical Exam Dictation VITAL SIGNS REVIEWED GENERAL APPEARANCE: ALERT, ORIENTED X 3, MODERATE ACUTE DISTRESS, WELL DEVELOPED, NOURISHED. OBESE HEAD AND FACE: NON-TRAUMATIC. EYES: PERRL, PINK CONJUNCTIVAS, EYELID NO TRAUMA, ANTERIOR CHAMBER WITH ARCUS SENILIS. EARS: PINNAS INTACT AND NO SIGNS OF TRAUMA OR ERYTHEMA EAR CANALS CLEAR AND NO DISCHARGE TM NO ERYTHEMA NOSE: NO DISCHARGE, NO BLEEDING. OROPHARYNX: MOUTH NORMAL, TONGUE PINK, PHARYNX CLEAR,NO ERYTHEMA, TONSILS NO EXUDATES, NO ABSCESSES NOTED, MUCOUS MEMBRANE MOIST NECK: SUPPLE, NON-TENDER, NO THYROMEGALY, NO MASSES, NO JVD, NO BRUITS BREAST:DEFERRED CHEST:NO TENDERNESS, NO CREPITUS, NO PARADOXICAL MOVEMENT, NO RETRACTIONS LUNGS:CLEAR, WELL-VENTILATED, SYMMETRIC, NO RALES, NO WHEEZING, NO RHONCHI, NO STRIDOR, GOOD BREATH SOUNDS BILATERALLY HEART: REGULAR RATE, REGULAR RHYTHM, NO MURMUR, NO GALLOPS VASCULAR: NO PERIPHERAL EDEMA, ABDOMEN: SOFT, POSITIVE BOWEL SOUNDS, NONDISTENDED, NO GUARDING, HE IS EPIGASTRIC TENDERNESS WITH PALPATION, NO REBOUND, NO MASSES NO HEPATOMEGALY, NO SPLENOMEGALY, NO THAKUR'S SIGN, NO HERNIAS. RECTAL: DEFERRED GENITAL: DEFERRED NEUROLOGICAL: NORMAL SPEECH, MOTOR FUNCTION INTACT, SENSORY FUNCTION INTACT MUSCULOSKELETAL: NECK NONTENDER, FULL RANGE OF MOTION, BACK NONTENDER, FULL RANGE OF MOTION, EXTREMITIES: NONTENDER, FULL RANGE OF MOTION SKIN: COLOR PINK, DRY, NO TURGOR, NO RASH, NO LACERATIONS, NO ABRASIONS, NO CONTUSIONS. LYMPHATIC: DEFERRED Results (Laboratory/Radiology) Laboratory/Radiology Laboratory Tests Test 03/22/25 16:39 03/22/25 18:19 White Blood Count 5.0 K/uL (4.8-10.8) Red Blood Count 3.57 MIL/uL (4.00-5.50) L Hemoglobin 10.6 g/dL (12.0-16.0) L Hematocrit 30.7 % (36-48) L Mean Corpuscular Volume 86.0 fL (79-99) Mean Corpuscular Hemoglobin 29.7 pg (27.0-33.0) Mean Corpuscular Hemoglobin Concent 34.5 g/dL (32.0-36.0) Red Cell Distribution Width 13.6 % (11.0-15.5) Platelet Count 121 K/uL (130-400) L Mean Platelet Volume 11.8 fL (7.5-10.5) H Immature Granulocyte % (Auto) 0.2 % (0-1) Neutrophils (%) (Auto) 49.2 % (40.0-77.0) Lymphocytes (%) (Auto) 38.0 % (21.0-51.0) Monocytes (%) (Auto) 8.4 % (3.0-13.0) Eosinophils (%) (Auto) 3.8 % (0.0-8.0) Basophils (%) (Auto) 0.4 % (0.0-5.0) Neutrophils # (Auto) 2.5 K/uL (1.8-7.7) Lymphocytes # (Auto) 1.9 K/uL (1.0-4.8) Monocytes # (Auto) 0.4 K/uL (0.1-1.0) Eosinophils # (Auto) 0.19 K/uL (0.00-0.70) Basophils # (Auto) 0.02 K/uL (0.00-0.20) Absolute Immature Granulocyte (auto 0.01 K/uL (0-1) Nucleated Red Blood Cells 0.0 % (0.0-0.19) Sodium Level 134 mmol/L (136-145) L Potassium Level 4.3 mmol/L (3.5-5.1) Chloride Level 100 mmol/L (101-111) L Carbon Dioxide Level 28 mmol/L (21-32) Blood Urea Nitrogen 15 mg/dL (7-18) Creatinine 0.5 mg/dL (0.5-1.0) Glomerular Filtration Rate Calc 96 mL/min (>90) Random Glucose 96 mg/dL (70-105) Total Calcium 8.8 mg/dL (8.5-10.1) Troponin I High Sensitivity 7 ng/L (4-50) Lipase 27 U/L (16-77) Urine Color LIGHT-YELLOW (YELLOW) Urine Appearance CLEAR (CLEAR) Urine pH 6.0 (5.0-8.0) Urine Specific [place] 1.009 (1.001-1.031) Urine Protein NEGATIVE mg/dL (NEGATIVE) Urine Glucose (UA) NEGATIVE mg/dL (NEGATIVE) Urine Ketones NEGATIVE mg/dL (NEGATIVE) Urine Occult Blood NEGATIVE (NEGATIVE) Urine Nitrate NEGATIVE (NEGATIVE) Urine Bilirubin NEGATIVE mg/dL (NEGATIVE) Urine Urobilinogen 0.2 mg/dL (0.2-1.0) Urine Leukocyte Esterase NEGATIVE Riccardo/uL Labs Reviewed?: Yes EKG: (+) NSR EKG Comment: EKG NORMAL SINUS RHYTHM/HEART RATE 76/AXIS NORMAL/NO ECTOPY ED Course ED Course Orders Procedure Category Date Status Time Cbc With Differential LAB 03/22/25 Complete 16:13 Troponin I High LAB 03/22/25 Complete Sensitivity 16:13 Urinalysis Profile LAB 03/22/25 Complete 16:13 12 Lead Ekg Tracing- EKG 03/22/25 Logged Technical 16:13 Lidocaine Hcl 2% PHA 03/22/25 In Process Viscous (Lidocaine Hcl 16:30 Mag/Alum/Simeth 30ml PHA 03/22/25 In Process (Maalox Plus 30ml) 16:30 Dicyclomine Hcl PHA 03/22/25 In Process (Bentyl 10mg/5ml 16:30 Famotidine 20mg Vial PHA 03/22/25 In Process (Pepcid 20mg Vial) 16:30 Lipase LAB 03/22/25 Complete 16:13 Basic Metabolic Panel LAB 03/22/25 Complete 16:13 Current Medications Medications (Trade) Dose Ordered Sig/Meka Route PRN Reason Start Time Stop Time Status Last Admin Dose Admin Al Hydroxide/Mg Hydroxide (MAALox PLUS 30ML) 30 ml ONCE PO 03/22/25 16:30 03/22/25 20:30 03/22/25 16:44 Dicyclomine HCl (Bentyl 10mg/5ml Syrup) 10 mg ONCE PO 03/22/25 16:30 03/22/25 20:30 03/22/25 16:44 Famotidine (Pepcid 20mg Vial) 20 mg ONCE IV 03/22/25 16:30 03/22/25 20:30 03/22/25 16:44 Lidocaine HCl (Lidocaine HCl 2% Viscous) 10 ml ONCE PO 03/22/25 16:30 03/22/25 20:30 03/22/25 16:44 Vital Signs Date Time Temp Pulse Resp B/P (MAP) Pulse Ox O2 Delivery O2 Flow Rate FiO2 03/22/25 16:09 97.9 80 16 144/77 98 Room Air 0 1830/PATIENT STATES THE PAIN IS COMPLETELY RESOLVED AFTER TREATMENT WITH GI COCKTAIL AND PEPCID. SHE STATES SHE LIKES TO DRINK THREE LARGE CUPS OF COFFEE DAILY MOST OF THE TIME ON AN EMPTY STOMACH. SHE HAS TAKEN PANTOPRAZOLE 40 MG IN THE MORNING HOWEVER SHE HAS NOT BEEN GOOD ABOUT MODIFYING HER DIET. DIETARY GUIDELINES WERE GIVEN AND PATIENT WILL BE DISCHARGED HOME WITH CARAFATE. HEART Score Response (Comments) Value History: Low suspicion (0) 0 Age: > 65yrs (+2) 2 Risk Factors: 1-2 risk factors (+1) 1 Initial Troponin: Normal limit (0) 0 Total 3 Medical Decision Making MDM MDM: DIFFERENTIAL DIAGNOSIS: ACS/AMI/ELECTROLYTE IMBALANCE/DEHYDRATION/GASTRITIS RATIONALE: TESTS CONSIDERED AND ORDERED SECONDARY TO SHARED DECISION MAKING INCLUDE: EKG/LABS PREVIOUS OUTSIDE RECORDS REVIEWED: OLD ER VISITS. RISK OF COMPLICATION AND/OR MORBIDITY OR MORTALITY OF PATIENT MANAGEMENT: NONE MEDICATIONS-PER MEDICATION RECONCILIATION NEED FOR HOSPITALIZATION: PATIENT DOES NOT MEET CRITERIA FOR HOSPITALIZATION. NO NEED FOR EMERGENCY MAJOR/MINOR SURGERY: NO THERE ARE NO SOCIAL CONCERNS WITH THIS PATIENT. PRESCRIPTION DRUG MANAGEMENT CARAFATE PRESCRIPTIONS WILL INCLUDE SYMPTOMATIC CARE PATIENT'S PRIOR EXTERNAL MEDICAL RECORDS FROM OTHER ER VISITS WERE REVIEWED BY ME INDICATED. PRIOR TESTING AND RESULTS FROM PREVIOUS VISITS WERE REVIEWED. PRIOR TESTS WERE TAKEN INTO ACCOUNT WITH MEDICAL DECISION MAKING AND RESOURCE UTILIZATION, INDEPENDENT HISTORIAN/HISTORIANS WERE USED TO OBTAIN COMPLETE MEDICAL HISTORY. I INDEPENDENTLY INTERPRETED THE TEST THAT WERE PERFORMED, RESULTS WERE REVIEWED BY ME AND CONSIDERED FINDINGS ON RADIOLOGY IF ORDERED. MEDICAL MANAGEMENT AND EXAMINATION INTERPRETATION DISCUSSIONS WERE HAD BY ME WI TH OTHER QUALIFIED HEALTHCARE PROFESSIONALS INDICATED FOR THE PATIENT'S CARE. DX & DISP Disposition: Discharge Departure Impression: Primary Impression: Acute gastritis Additional Impressions: Hyponatremia, Hypochloremia Condition: Stable Scripts Sucralfate (Carafate) 1 Gram Tablet 1 GM PO ACHS for 10 Days, #40 TAB Prov: TOI APARICIO GAME TESTER 03/22/25 Additional Instructions: FOLLOW-UP WITH PRIMARY CARE PROVIDER IN 1 TO 2 DAYS. TAKE MEDICATIONS DIRE CTED HERE IN THE EMERGENCY ROOM. OKAY TO CONTINUE HOME MEDICATIONS UNLESS OTHERWISE DISCUSSED DURING YOUR VISIT IN THE EMERGENCY ROOM TODAY. RETURN TO YOUR NEAREST EMERGENCY ROOM IF SYMPTOMS WORSEN OR IF THERE IS NO IMPROVEMENT. CALL 911 IF YOU NEED IMMEDIATE ASSISTANCE. TAKE TYLENOL OR MOTRIN [id number] NEEDED AND IF NO CONTRAINDICATIONS ARE PRESENT. INCREASE ORAL HYDRATION. A WOUND CULTURE OR URINE CULTURE WAS ORDERED HERE IN THE EMERGENCY ROOM DEPARTMENT PLEASE FOLLOW-UP WITH PRIMARY CARE PROVIDER AND ADVISE THEM TO GET REPEAT PORTS FROM OUR FACILITY. IF YOU HAD ANY JESSE WRAP/SPLINTS THAT WERE APPLIED HERE, PLEASE DO NOT REMOVE THEM UNTIL YOU SEE YOUR PRIMARY CARE OR SPECIALTY. FOLLOW A BLAND DIET WITH WATER FOR FLUIDS ONLY. NO SODA POP, NO ICE TEA, NO ALCOHOL, NO SPICY FOODS, NO CITRUS FRUIT JUICE, NO COFFEE UNTIL CLEARED BY YOUR PRIMARY CARE DOCTOR CONTINUE PANTOPRAZOLE BY YOUR DOCTOR AND TAKE CARAFATE DIRECTED 30 MINUTES BEFORE MEALS AND BEDTIME. Referrals: ANGUS BARTH (PCP) Time of Disposition: 18:33 I have reviewed the case, and I agree with, Diagnosis and Plan TOI APARICIO NP Mar 22, 2025 16:15
[2025-03-22] MEDS: LIDOCAINE HCL 2% VISCOUS 15 ML UDCUP PO SCH (16:44)
[2025-03-22] MEDS: DICYCLOMINE HCL 10 MG/5 ML ML PO SCH (16:44)
[2025-03-22] MEDS: MAG/ALUM/SIMETH 30 ML UDCUP PO SCH (16:44)
[2025-03-22] MEDS: FAMOTIDINE 20MG VIAL IV SCH (16:44)
[2025-03-22 16:47] LABS: IMMATURE GRANULOCYTE ABSOLUTE 0.01 K/uL (0-1); NUCLEATED RED BLOOD CELLS 0.0 % (0.0-0.19); PLATELET COUNT (AUTO) 121 K/uL (130-400); RED BLOOD CELL COUNT(AUTO) 3.57 MIL/uL (4.00-5.50); RED CELL DISTRIBUTION WIDTH 13.6 % (11.0-15.5); WHITE BLOOD COUNT (AUTO) 5.0 K/uL (4.8-10.8)
[2025-03-22 17:06] LABS: CREATININE 0.5 mg/dL (0.5-1.0); GLOMERULAR FILTR. RATE CALC 96.0 mL/min (>90); GLUCOSE,RANDOM 96.0 mg/dL (70-105); SODIUM SERUM 134.0 mmol/L (136-145); UREA NITROGEN, BLOOD 15.0 mg/dL (7-18)
[2025-03-22 18:28] LABS: APPEARANCE,URINE CLEAR (CLEAR); GLUCOSE, URINE (UA) NEGATIVE (NEGATIVE); LEUKOCYTE ESTERASE ,URINE NEGATIVE Leu/uL (NEGATIVE); NITRATE,URINE NEGATIVE (NEGATIVE); OCCULT BLOOD,URINE NEGATIVE (NEGATIVE)
[2025-03-22 18:29] LABS: ADD UA MICROSCOPIC NO
[2025-03-22] MEDS ORDERED: SUCR1TAB28 PO (18:34)
[2025-03-22 19:11] VITALS: BP 141/80; PULSE 76; RESP 16; TEMP 97.9; O2SAT 98
--- NOTE | 2025-03-23 06:34 | EKG ---
[facility] Test Date: 2025-03-22 Test Time: 16:20:25 Pat Name: IKE ROBERTS Department: [facility] Room: Gender: F [employer]: [id number] [phone] 1945 Requested By: TOI APARICIO Order Number: [id number] Reading MD: Terell Muir Measurements Intervals [place] Rate: 76 P: 57 NM: 136 QRS: -2 QRSD: 80 T: 44 QT: 388 QTc: 437 Interpretive Statements Sinus rhythm Compared to ECG 03/07/2025 10:29:59 No significant changes Electronically Signed On 03-23-2025 13:22:28 CDT by Terell Muir Please click the below link to view image of tracing.
== END 2025-03-22 19:16 | disposition home or self-care (01) ==
LOC: EDH 16:07
DX: K29.00 Acute gastritis without bleeding (principal); E87.1 Hypo-osmolality and hyponatremia; E87.8 Other disorders of electrolyte and fluid balance, not elsewhere classified; E11.9 Type 2 diabetes mellitus without complications; E78.00 Pure hypercholesterolemia, unspecified; I10 Essential (primary) hypertension; Z79.02 Long term (current) use of antithrombotics/antiplatelets; Z79.82 Long term (current) use of aspirin; Z79.84 Long term (current) use of oral hypoglycemic drugs; Z79.899 Other long term (current) drug therapy; Z95.5 Presence of coronary angioplasty implant and graft
CPT/HCPCS: 99284; 96374; 84484; 80048; 83690; 85025; 81003; 36415; 93005; J3490